=== PATIENT | male | born 1995 | race Two or more races ===

== ENCOUNTER 2017-02-12 09:32 | Inpatient (IN) | payer OTHER ==
[~2017-02-12] VITALS: Ht 171.4 cm; Wt 95.3 kg
[2017-02-12] VITALS (11 sets, daily range): BP systolic 94–128; BP diastolic 43–78
[~2017-02-12 09:32] MED LIST: Bacitracin 50000 Units Vial ONE; Bupivacaine w/Epi 0.5% 30ml Vial INJ ONE; Thrombin 5000 units TOPIC ONE; Vancomycin 1gm inj IVPB ONE; ceFAZolin 2gm/50ml Premix 50 ML IVPB ONE
[2017-02-12] MEDS ORDERED: NKM (10:13)
[2017-02-12] MEDS ORDERED: Ketorolac 30mg Inj ONE (11:00)
[2017-02-12] MEDS ORDERED: Neostigmine 1mg/ml 10ml Inj ONE (11:00)
[2017-02-12] MEDS ORDERED: LR 1000ml ONE (11:00)
[2017-02-12] MEDS ORDERED: fentaNYL 100 mcg/2 mL IV ONE (11:00)
[2017-02-12] MEDS ORDERED: Midazolam 2mg/2ml Inj ONE (11:00)
[2017-02-12] MEDS ORDERED: Atropine Sulfate 0.4mg/ml inj ONE (11:00)
[2017-02-12] MEDS ORDERED: Glycopyrrolate 0.2mg/ml 1ml Vial ONE (11:00)
[2017-02-12] MEDS ORDERED: Sodium Chloride 10ml vial INJ ONE (11:00)
[2017-02-12] MEDS ORDERED: NS Irrig 1000ml ONE (11:00)
[2017-02-12] MEDS ORDERED: Sterile Water Irrig 1000ml IRRIG ONE (11:00)
[2017-02-12] MEDS ORDERED: Zemuron 50mg/5ml Inj IV ONE (11:00)
[2017-02-12] MEDS ORDERED: Propofol 10mg/ml 100ml btl IV ONE (11:00)
[2017-02-12] MEDS ORDERED: Morphine Sulfate 10mg/ml Inj ONE (11:00)
--- NOTE | 2017-02-12 11:04 | Pre-Procedure Note/Attestation ---
Pre-Procedure Note/Attestation Complete Prior to Procedure Planned Procedure: right Procedure Narrative: Right sided L45 microdiscectomy Indications for Procedure Pre-Operative Diagnosis: L45 herniated disc and L5S1 herniation Attestation I attest that I discussed the nature of the procedure; its benefits; risks and complications; and alternatives (and the risks and benefits of such alternatives ), prior to the procedure, with the patient (or the patient's legal business process representative). I attest that, if there was a reasonable possibility of needing a blood transfusion, the patient (or the patient's legal business process representative) was given the [facility] standardized written summary, pursuant to the [place] Blood Safety Act ([place] Health and Safety Code # 1645, as amended). I attest that I re-evaluated the patient just prior to the surgery and that there has been no change in the patient's H&P, except as documented below: ELIZABETH COLON Feb 12, 2017 11:04
--- NOTE | 2017-02-12 11:05 | Brief Operative Note ---
Immediate Post Operative Note Operative Note Chief Complaint: Back pain and right sided leg pains Pre-op Diagnosis: L45 herniated disc and L5S1 herniation Procedure: Right sided L45 microdiscectomy Post-op Diagnosis: same as pre-op Findings: consistent w/pre-op dx studies Surgeon: Desiree Utilities Equipment Repairer: Marie Anesthesiologist: Issac Anesthesia: general Specimen: none Complications: none Estimated Blood Loss: minimal Implant(s) used?: ELIZABETH Umanzor Feb 12, 2017 11:05
[2017-02-12] MEDS ORDERED: HYDROmorphone 1mg/ml Carpuject IVP PRN (11:15)
[2017-02-12] MEDS ORDERED: Chloraseptic Spray 20mL Bottle ORAL PRN (11:15)
[2017-02-12] MEDS ORDERED: Milk of Magnesia 30ml Ud ORAL PRN (11:15)
[2017-02-12] MEDS ORDERED: HYDROmorphone 1mg/ml Carpuject SUBQ PRN (11:15)
[2017-02-12] MEDS ORDERED: Norco 7.5mg/325mg tab ORAL PRN ×2 (11:15)
[2017-02-12] MEDS ORDERED: Norco 5mg/325mg tab ORAL PRN (11:15)
[2017-02-12] MEDS ORDERED: Naloxone 0.4mg/ml Inj IVP PRN (11:15)
[2017-02-12] MEDS ORDERED: Metoclopramide 10mg/2ml Inj IVP PRN ×2 (11:15→12:00)
[2017-02-12] MEDS ORDERED: LR 1000ml 1,000 ML IVLG SCH (11:56)
--- NOTE | 2017-02-12 11:56 | Anethesia Preoperative Eval ---
Anesthesia Pre-op PMH/ROS General Date of Evaluation: Feb 12, 2017 Time of Evaluation: 10:50 Anesthesiologist: Issac ASA Score: ASA 2 Mallampati Score Class I : Soft palate, uvula, fauces, pillars visible Class II: Soft palate, uvula, fauces visible Class III: Soft palate, base of uvula visible Class IV: Only hard plate visible Mallampati Classification: Class II Surgeon: Desiree Diagnosis: Lumbar radiculopathy Surgical Procedure: L4-L5 laminotomy Anesthesia History: none Family History: no anesthesia problems Allergies: Coded Allergies: No Known Allergies (Unverified , 02/07/17) Medications: see eMAR Past Medical History Cardiovascular: Denies: HTN, CAD, [place], valve dz, arrhythmia, other Pulmonary: Denies: asthma, COPD, MIGUEL ÁNGEL, other Gastrointestinal/Genitourinary: Reports: GERD - mild, Denies: CRI, ESRD, other Neurologic/Psychiatric: Reports: other - chronic pain, Denies: dementia, CVA, depression/anxiety, TIA Endocrine: Denies: DM, hypothyroidism, steroids, other Hematology/Immune: Denies: anemia, DVT, bleeding disorder, other Musculoskeletal/Integumentary: Denies: OA, RA, DJD, DDD, edema, other Other: other - overweight PMH Narrative: as above PSxH Narrative: none Anesthesia Pre-op Phys. Exam Physician Exam Last Vital Signs Date Time Temp Pulse Resp B/P (MAP) Pulse Ox O2 Delivery O2 Flow Rate FiO2 02/12/17 10:14 97.8 50 20 128/78 98 Room Air Constitutional: NAD Neurologic: CN 2-12 intact Cardiovascular: RRR, no M/R/G Respiratory: CTA Gastrointestinal: S/NT/ND Airway Exam Mallampati Score: Class II MO: full Neck: flexible ROM: full Teeth: intact Dentures: no upper, no lower Anesthesia Pre-op A/P Labs see chart Studies Pre-op Studies: EKG - NSR, CXR - WNL Risk Assessment & Plan Assessment: ASA 2 Plan: GA with ETT PONV prevention prone position neuromonitoring Status Change Before Surgery: No Pre-Antibiotics Drug: Ancef 2 gr. Given Within 1 Hr of Incision: Yes Time Given: 11:32 SINAI PATTERSON M.D. Feb 12, 2017 11:56
[2017-02-12] MEDS ORDERED: Hydromorphone 0.5mg/0.5ml inj IVP PRN (12:00)
[2017-02-12] MEDS ORDERED: Midazolam 2mg/2ml Inj IVP PRN (12:00)
[2017-02-12] MEDS ORDERED: Meperidine 25mg/0.5ml Inj (FOR RIGORS ONLY) IV PRN (12:00)
[2017-02-12] MEDS ORDERED: Ketorolac 30mg Inj IV PRN (12:00)
--- NOTE | 2017-02-12 13:23 | Immediate Post-Op Evaluation ---
Immediate Post-Op Evalulation Immediate Post-Op Evalulation Procedure: L4-L5 laminotomy with decompression Date of Evaluation: Feb 12, 2017 Time of Evaluation: 13:22 IV Fluids: 1200 Blood Products: none Estimated Blood Loss: 50 Urinary Output: none Blood Pressure Systolic: 94 Blood Pressure Diastolic: 58 Pulse Rate: 62 Respiratory Rate: 20 O2 Sat by Pulse Oximetry: 98 Temperature (Fahrenheit): 97.6 Pain Score (1-10): 2 Nausea: No Vomiting: No Complications none Patient Status: reacts, patent, extubated, none Hydration Status: adequate SINAI PATTERSON M.D. Feb 12, 2017 13:23
--- NOTE | 2017-02-12 14:51 | Diagnostic Imaging Report ---
Indication: Back pain Comparison: None Findings: Fluoroscopic views of the lumbar spine were obtained. Intraoperative imaging showing localization needles followed by instrument placement between the L4-5 disc. Impression: Intraoperative localization imaging
[2017-02-12] MEDS: NS w/KCl 20mEq 1,000 ML IV SCH (16:15)
[2017-02-12] MEDS: Docusate 100mg cap ORAL SCH (17:21)
[2017-02-12] MEDS: Dexamethasone 4mg/ml vial IVP SCH ×2 (17:21→23:57)
[2017-02-12] MEDS: ceFAZolin sod 1 GM in D5W 55 ML IV SCH (17:22)
[2017-02-13] VITALS: BP 112/62
[2017-02-13] MEDS: ceFAZolin sod 1 GM in D5W 55 ML IV SCH ×2 (01:46→09:22)
[2017-02-13] MEDS: NS w/KCl 20mEq 1,000 ML IV SCH ×2 (03:05→12:30)
[2017-02-13] MEDS: Dexamethasone 4mg/ml vial IVP SCH ×2 (06:15→12:26)
--- NOTE | 2017-02-13 07:07 | 48 Hour Post Anesthesia Eval ---
Post Anesthesia Evaluation Procedure: L4-L5 laminotomy with decompression Date of Evaluation: Feb 13, 2017 Time of Evaluation: 06:31 Blood Pressure Systolic: 112 0: 62 Pulse Rate: 47 Respiratory Rate: 18 Temperature (Fahrenheit): 98.8 O2 Sat by Pulse Oximetry: 98 Airway: patent Nausea: No Vomiting: No Pain Intensity: 3 Hydration Status: adequate Cardiopulmonary Status: Stable Mental Status/LOC: patient returned to baseline Follow-up Care/Observations: 0 Post-Anesthesia Complications: 0 Follow-up care needed: N/A Gus Fitzgerald MD Feb 13, 2017 07:07
--- NOTE | 2017-02-13 08:15 | Consultation ---
History of Present Illness General Date patient seen: Feb 12, 2017 Time patient seen: 13:00 Present Illness Allergies: Coded Allergies: No Known Allergies (Unverified , 02/07/17) Medication History Scheduled No Known Medications* (NKM - No Known Medications*), 0 ., (Reported) Patient History Healthcare decision maker MARICEL TURNER-MOTHER Resuscitation status Full Code Advanced Directive on File Physical Exam Last 24 Hour Vital Signs Date Time Temp Pulse Resp B/P (MAP) Pulse Ox O2 Delivery O2 Flow Rate FiO2 02/13/17 07:07 47 18 98 02/13/17 00:00 98.8 47 18 112/62 98 Room Air 02/12/17 20:00 98.4 46 18 122/69 94 Room Air 02/12/17 15:30 97.2 48 20 112/57 98 Nasal Cannula 2.0 02/12/17 14:30 97.5 43 19 113/56 96 Nasal Cannula 2.0 02/12/17 14:17 97.6 02/12/17 14:17 98.0 49 20 103/47 100 Nasal Cannula 2.0 02/12/17 14:01 41 20 106/56 100 Nasal Cannula 2.0 02/12/17 13:42 45 20 103/50 100 Simple Mask 8.0 02/12/17 13:30 50 20 102/52 100 Simple Mask 8.0 02/12/17 13:23 62 20 98 02/12/17 13:19 60 20 98/45 100 Simple Mask 8.0 02/12/17 13:14 55 20 94/43 100 Simple Mask 8.0 02/12/17 13:09 52 20 98/43 98 Simple Mask 8.0 02/12/17 10:14 97.8 50 20 128/78 98 Room Air Height (Feet): 5 Height (Inches): 7.50 Weight (Pounds): 210 Medications Current Medications Medications (Trade) Dose Ordered Sig/Migel Route PRN Reason Start Time Stop Time Status Last Admin Dose Admin Acetaminophen (Tylenol) 650 mg Q4H PRN ORAL headache or temp>101 02/12/17 11:15 03/14/17 11:14 Acetaminophen/ Hydrocodone Bitart (Jackson 5/325) 1 tab Q3H PRN ORAL pain score 1-3 02/12/17 11:15 02/19/17 11:14 Acetaminophen/ Hydrocodone Bitart (Jackson 7.5/325) 1 ea Q3H PRN ORAL pain score 4-6 02/12/17 11:15 02/19/17 11:14 Acetaminophen/ Hydrocodone Bitart (Jackson 7.5/325) 2 ea Q3H PRN ORAL pain scale 7-10 02/12/17 11:15 02/19/17 11:14 Carisoprodol (Soma) 350 mg TIDPRN PRN ORAL MUSCLE SPASM 02/12/17 11:15 03/14/17 11:14 Cefazolin Sodium 1 gm/Dextrose 55 ml @ 110 mls/hr Q8H IV 02/12/17 18:00 02/13/17 10:29 02/13/17 01:46 Cetylpyridinium Chloride (Cepacol) 1 lozenge Q2H PRN ANGEL SORE THROAT 02/12/17 11:15 03/14/17 11:14 Dexamethasone Sodium Phosphate (Decadron 4mg/ml vial) 4 mg Q6HR IVP 02/12/17 18:00 02/13/17 12:01 02/13/17 06:15 Docusate Sodium (Colace) 100 mg TWICE A DAY ORAL 02/12/17 18:00 03/14/17 17:59 02/12/17 17:21 Hydromorphone HCl (Dilaudid) 1 mg Q2H PRN IVP Breakthrough Pain 02/12/17 11:15 02/19/17 11:14 Hydromorphone HCl (Dilaudid) 1 mg Q4H PRN SUBQ Mild Pain (Pain Scale 1-3) 02/12/17 11:15 02/19/17 11:14 Hydromorphone HCl (Dilaudid) 2 mg Q3H PRN SUBQ Severe Pain (Pain Scale 7-10) 02/12/17 11:15 02/19/17 11:14 Hydromorphone HCl (Dilaudid) 2 mg Q4H PRN SUBQ Moderate Pain (Pain Scale 4-6) 02/12/17 11:15 02/19/17 11:14 Magnesium Hydroxide (Mom) 30 ml QIDPRN PRN ORAL Constipation 02/12/17 11:15 03/14/17 11:14 Metoclopramide HCl (Reglan) 10 mg Q6H PRN IVP Nausea & Vomiting 02/12/17 11:15 03/14/17 11:14 Naloxone HCl (Narcan) 0.1 mg PRN PRN IVP RR<12/min, pt unarousable 02/12/17 11:15 03/14/17 11:14 Ondansetron HCl (Zofran) 4 mg Q6H PRN IVP Nausea & Vomiting 02/12/17 11:15 03/14/17 11:14 Phenol/Menthol (Chloraseptic) 1 spray Q3H PRN ORAL UNRELIEVED SORE THROAT 02/12/17 11:15 03/14/17 11:14 Sodium Chloride 1,000 ml @ 100 mls/hr Q10H IV 02/12/17 16:30 03/14/17 16:29 02/13/17 03:05 Temazepam (Restoril) 15 mg HSPRN PRN ORAL Insomnia 02/12/17 11:15 02/19/17 11:14 Stefani Mares M.D. Feb 13, 2017 08:15
[2017-02-13 08:30] VITALS: BP 124/66
[2017-02-13] MEDS: Docusate 100mg cap ORAL SCH (09:22)
[2017-02-13 11:56] VITALS: BP 119/67
[2017-02-13] MEDS ORDERED: NORCO 10-325 T1 EACH ORAL (13:04)
[2017-02-13] MEDS ORDERED: Tubing IV Secondary IV ONE (13:17)
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
--- NOTE | 2017-02-14 08:00 | Discharge Summary ---
DATE OF ADMISSION: 02/12/2017 DATE OF DISCHARGE: 02/13/2017 PROCEDURE PERFORMED DURING ADMISSION: L4-L5 right-sided microdiskectomy. REASON FOR ADMISSION: L4-L5 disk herniation. HOSPITAL COURSE/TREATMENT RENDERED: DISCHARGE PHYSICAL EXAM: 1. Patient was ambulating with and without the assistance of physical therapy. 2. Prior to discharge home incision was clean and dry with minimal swelling. 3. Follows commands. 4. Alert and oriented. 5. Valdes discontinued, voiding. 6. Incentive spirometer at bedside. 7. IVF hep locked. MOTOR: Demonstrates expected postoperative bulk and tone. Moves biceps, triceps, and deltoid musculature on command. Moves hip flexors, quadriceps, tibialis anterior, EHL, gastrocsoleus musculature on command as well. TREATMENT RENDERED: 1. Daily nursing care. 2. Physical Therapy. 3. Occupational Therapy. 4. Intravenous medications. 5. Oral medications. 6. Daily postoperative examinations by Spine surgery team. CONDITION OF PATIENT ON DISCHARGE: The condition on discharge is stable for discharge to home. DISCHARGE INSTRUCTIONS: Our specific instructions relating to physical activity, medications diet and follow-up care are detailed in our standard operative folder and were given to this patient prior to surgery. We will however summarize these briefly as stated below. Regarding physical activity we would like the patient to limit their flexion, extension and rotation. We also require a limitation on their bending lifting and twisting. All medication has been called in prior to surgery to their pharmacy of choice. They can resume their regular diet once tolerated. We would like them to shower and limit soaking the wound in a tub/Jacuzzi/the ocean for a period of one month or until the incision is completely healed. We will have them follow up in our office in three weeks time for their regularly scheduled appointment. They understand to call our office tomorrow to schedule the time for their three week followup appointment. The patient will notify us should they experience any increase in the severity of pain, redness/swelling/ or drainage from their incision. Jeffrey Ramírez M.D. DR: Kel JOB#: [id number] CC:
== END 2017-02-13 13:18 | disposition home or self-care (01) | DRG 520 ==
LOC: SDSOVERFLO 09:32 → 3E 14:33
PROC: 0ST20ZZ Resection of Lumbar Vertebral Disc, Open Approach (ICD-10-PCS; principal; 2017-02-12 11:00)
PROC: 4A11X4G Monitoring of Peripheral Nervous Electrical Activity, Intraoperative, External Approach (ICD-10-PCS; principal; 2017-02-12 11:00)
DX: M51.17 Intervertebral disc disorders with radiculopathy, lumbosacral region (principal); M48.06 Spinal stenosis, lumbar region; K21.9 Gastro-esophageal reflux disease without esophagitis
CPT/HCPCS: 36415; 72020; 76001; 86850; 86900; 86901; 87081; 94003; 94150; J2250; J2405; J2710